=== PATIENT | male | born 1970 | race African-American/Black ===

== ENCOUNTER 2017-05-07 10:14 | Emergency (ER) | payer MEDICARE, MEDICAID ==
[~2017-05-07] VITALS: Ht 175.3 cm; Wt 62.0 kg
[2017-05-07] MEDS ORDERED: HYDROCODONE/ACETAMINOPHEN 5/325MG TABLET PO ONE (11:30)
[2017-05-07 11:50] LABS: CLARITY URINE CLOUDY (CLEAR); COLOR URINE YELLOW (YELLOW); GLUCOSE URINE NEGATIVE (NEGATIVE); KETONES URINE NEGATIVE (NEGATIVE); LEUKOCYTE ESTERASE URINE 2+ (NEGATIVE); NITRITE URINE POSITIVE (NEGATIVE); OCCULT BLOOD URINE TRACE (NEGATIVE); PROTEIN URINE 1+ (NEGATIVE); SPECIFIC GRAVITY URINE 1.016 (1.005-1.030)
[2017-05-07] MEDS ORDERED: AZITHROMYCIN 500 MG TABLET PO ONE (13:30)
[2017-05-07] MEDS ORDERED: LIDOCAINE HCL 1% 20ML VIAL (Pyxis) INJ INFIL ONE (13:30)
[2017-05-07] MEDS ORDERED: CEFTRIAXONE SODIUM 1 G/VIAL IM ONE (13:30)
[2017-05-07 13:40] VITALS: BP 135/90
== END 2017-05-07 13:51 | disposition home or self-care (01) ==
LOC: ER 10:15
DX: N45.3 Epididymo-orchitis (principal); N39.0 Urinary tract infection, site not specified; N43.3 Hydrocele, unspecified
CPT/HCPCS: 76870; 81001; 93976; 96372; 99285; J0696; J3490; 99284

== ENCOUNTER 2017-10-10 12:05 | Emergency (ER) | payer MEDICARE, MEDICAID ==
[~2017-10-10] VITALS: Ht 175.3 cm; Wt 70.0 kg
[2017-10-10] MEDS ORDERED: ONDANSETRON HCL 4MG/2ML VIAL IV STA (14:30)
[2017-10-10] MEDS ORDERED: KETOROLAC 30MG/ML VIAL IV STA (14:30)
[2017-10-10] MEDS ORDERED: FAMOTIDINE 20MG/2ML VIAL IV ONE (14:30)
[2017-10-10] MEDS ORDERED: SODIUM CHLORIDE 0.9% 1,000 ML IV ONE (14:30)
[2017-10-10 14:51] LABS: BASOPHILS % 0.4 % (0.0-2.0); HEMATOCRIT. 40.6 % (42.0-52.0); HEMOGLOBIN. 13.4 g/dL (14.0-18.0); LYMPHOCYTES % 7.1 % (20.0-50.0); MEAN CORPUSCULAR HEMOGLOBIN 29.7 pg (28.0-32.0); MEAN PLATELET VOLUME 9.4 fl (7.4-10.4); MONOCYTES % 5.7 % (2.0-8.0); NEUTROPHILS % 86.8 % (40.0-76.0); PLATELET 174 x1000/uL (130-400); RED BLOOD CELL COUNT 4.51 mill/uL (4.7-6.1)
[2017-10-10 14:59] LABS: PROTHROMBIN TIME 10.6 sec (9.4-11.6)
[2017-10-10 15:07] LABS: CARBON DIOXIDE 25 mEq/L (21-32); CHLORIDE 104 mEq/L (98-107)
[2017-10-10 15:40] LABS: CLARITY URINE CLOUDY (CLEAR); COLOR URINE YELLOW (YELLOW); GLUCOSE URINE NEGATIVE (NEGATIVE); KETONES URINE TRACE (NEGATIVE); LEUKOCYTE ESTERASE URINE 2+ (NEGATIVE); NITRITE URINE POSITIVE (NEGATIVE); OCCULT BLOOD URINE NEGATIVE (NEGATIVE); PROTEIN URINE 1+ (NEGATIVE); SPECIFIC GRAVITY URINE 1.022 (1.005-1.030)
[2017-10-10] MEDS ORDERED: IOHEXOL-300 50 ML BOTTLE IV ONE (15:57)
[2017-10-10] MEDS ORDERED: IOHEXOL-300 100 ML BOTTLE ONE (15:57)
[2017-10-10 17:32] VITALS: BP 130/75
== END 2017-10-10 17:36 | disposition home or self-care (01) ==
LOC: ER 12:05
DX: N39.0 Urinary tract infection, site not specified (principal); D72.829 Elevated white blood cell count, unspecified; Z20.6 Contact with and (suspected) exposure to human immunodeficiency virus [HIV]
CPT/HCPCS: 36415; 74177; 80053; 81001; 83690; 85025; 85610; 96361; 96374; 96375; 99285; J1885; J2405; J3490; J7030; Q9967

== ENCOUNTER 2019-02-18 09:39 | Emergency (ER) | payer MEDICARE, MEDICAID ==
[~2019-02-18] VITALS: Ht 175.3 cm; Wt 63.5 kg
[2019-02-18] MEDS ORDERED: ELVI1TAB3 PO (10:49)
[2019-02-18 11:29] LABS: CLARITY URINE CLEAR (CLEAR); COLOR URINE YELLOW (YELLOW); KETONES URINE NEGATIVE (NEGATIVE); LEUKOCYTE ESTERASE URINE 1+ (NEGATIVE); NITRITE URINE POSITIVE (NEGATIVE); OCCULT BLOOD URINE NEGATIVE (NEGATIVE); PROTEIN URINE TRACE (NEGATIVE); SPECIFIC GRAVITY URINE 1.026 (1.005-1.030); UROBILINOGEN URINE 0.2 E.U./dL (0.2-1.0)
[2019-02-18 12:16] LABS: BASOPHILS % 0.5 % (0.0-2.0); EOSINOPHILS % 0.6 % (0.0-5.0); HEMATOCRIT. 42.2 % (42.0-52.0); HEMOGLOBIN. 13.9 g/dL (14.0-18.0); LYMPHOCYTES % 16.8 % (20.0-50.0); MEAN CORPUSCULAR HEMOGLOBIN 32.1 pg (28.0-32.0); MEAN CORPUSCULAR VOLUME 97.4 fL (80.0-94.0); MEAN PLATELET VOLUME 8.4 fl (7.4-10.4); MONOCYTES % 8.1 % (2.0-8.0); PLATELET 273 x1000/uL (130-400); RED BLOOD CELL COUNT 4.33 mill/uL (4.7-6.1); RED CELL DISTRIBUTION WIDTH 15.5 % (11.6-14.6)
[2019-02-18 12:23] LABS: CHLORIDE 109 mEq/L (98-107)
[2019-02-18 12:28] VITALS: BP 125/82
== END 2019-02-18 14:04 | disposition left against medical advice (07) ==
LOC: ER 09:39
DX: N30.00 Acute cystitis without hematuria (principal); G89.29 Other chronic pain; R10.84 Generalized abdominal pain; Z90.49 Acquired absence of other specified parts of digestive tract
CPT/HCPCS: 36415; 87077; 87186; 99283

== ENCOUNTER 2019-09-23 11:16 | Emergency (ER) | payer MEDICARE, MEDICAID ==
[~2019-09-23] VITALS: Ht 175.3 cm; Wt 62.0 kg
[~2019-09-23 11:16] MED LIST: ELVI1TAB3 PO
[2019-09-23] MEDS ORDERED: KETOROLAC 30MG/ML VIAL IM ONE (12:00)
[2019-09-23 13:30] VITALS: BP 128/82
== END 2019-09-23 13:55 | disposition home or self-care (01) ==
LOC: ER 11:16
DX: S52.571A Other intraarticular fracture of lower end of right radius, initial encounter for closed fracture (principal); R05 Cough; Z90.49 Acquired absence of other specified parts of digestive tract; W10.8XXA Fall (on) (from) other stairs and steps, initial encounter; Y93.89 Activity, other specified; Y92.018 Other place in single-family (private) house as the place of occurrence of the external cause
CPT/HCPCS: 73110; 73130; 96372; 99283; J1885

== ENCOUNTER 2022-03-04 11:52 | Emergency (ER) | payer MEDICARE, MEDICAID ==
[~2022-03-04] VITALS: Ht 175.3 cm; Wt 59.0 kg
[2022-03-04] MEDS ORDERED: ACETAMINOPHEN WITH CODEINE 300/30MG TABLET PO NR (12:20)
[2022-03-04] MEDS ORDERED: T3 PO (12:32)
[2022-03-04] MEDS ORDERED: AMOX-494 PO (12:32)
[2022-03-04 13:16] VITALS: BP 124/91
== END 2022-03-04 13:16 | disposition home or self-care (01) ==
LOC: ER 12:13
DX: S02.5XXA Fracture of tooth (traumatic), initial encounter for closed fracture (principal); S00.83XA Contusion of other part of head, initial encounter; Z90.49 Acquired absence of other specified parts of digestive tract; W01.190A Fall on same level from slipping, tripping and stumbling with subsequent striking against furniture, initial encounter; Y93.89 Activity, other specified; Y92.018 Other place in single-family (private) house as the place of occurrence of the external cause
CPT/HCPCS: 99283

== ENCOUNTER 2022-07-20 12:25 | Emergency (ER) | payer MEDICARE, MEDICAID ==
[~2022-07-20] VITALS: Ht 175.3 cm; Wt 57.0 kg
[~2022-07-20 12:25] MED LIST changes: +AMOX-494 PO; +T3 PO
[2022-07-20 12:54] VITALS: BP 150/86
[2022-07-20] MEDS ORDERED: OFLO5DRO4 LEFT EAR (14:43)
== END 2022-07-20 16:20 | disposition home or self-care (01) ==
LOC: ER 12:25
DX: H60.92 Unspecified otitis externa, left ear (principal)
CPT/HCPCS: 99281; 99283

== ENCOUNTER → 2022-08-18 | Outpatient (CLI) | payer MEDICARE, MEDICAID ==
[~2022-08-18] MED LIST changes: +OFLO5DRO4 LEFT EAR
== END | disposition home or self-care (01) ==
LOC: RAD 12:12
PROVIDERS: ATTEND Pain Medicine Pain Medicine
DX: M12.561 Traumatic arthropathy, right knee (principal); M12.562 Traumatic arthropathy, left knee; M23.91 Unspecified internal derangement of right knee; M23.92 Unspecified internal derangement of left knee
CPT/HCPCS: 73565

== ENCOUNTER → 2022-08-31 | Outpatient (CLI) | payer MEDICARE, MEDICAID ==
[~2022-08-31] MED LIST changes: +MECL-159 MT
[2022-08-31 16:39] LABS: BASOPHILS % 0.3 % (0.0-2.0); EOSINOPHILS % 1.4 % (0.0-5.0); HEMATOCRIT. 38.5 % (42.0-52.0); HEMOGLOBIN. 12.7 g/dL (14.0-18.0); LYMPHOCYTES % 14.7 % (20.0-50.0); MEAN CORPUSCULAR HEMOGLOBIN 32.1 pg (28.0-32.0); MEAN CORPUSCULAR VOLUME 97.1 fL (80.0-94.0); MEAN PLATELET VOLUME 8.2 fl (7.4-10.4); MONOCYTES % 8.4 % (2.0-8.0); NEUTROPHILS % 75.2 % (40.0-76.0); PLATELET 370 x1000/uL (130-400); RED BLOOD CELL COUNT 3.97 mill/uL (4.7-6.1); RED CELL DISTRIBUTION WIDTH 16.2 % (11.6-14.6)
[2022-08-31 16:57] LABS: CHLORIDE 105 mEq/L (98-107)
[2022-08-31 17:10] LABS: GAMMA GLUTAMYL TRANSPEPTIDASE 218 IU/L (11-50); HDL CHOLESTEROL 37 mg/dL (40-59); LDL CHOLESTEROL 34 mg/dL (5-100)
[2022-09-03 13:11] LABS: VITAMIN D 1-25 DIHYDROXY 85.6 pg/mL (24.8-81.5)
== END | disposition home or self-care (01) ==
LOC: LAB 15:45
PROVIDERS: ATTEND Pain Medicine Pain Medicine
DX: E55.9 Vitamin D deficiency, unspecified (principal); K75.9 Inflammatory liver disease, unspecified; R79.9 Abnormal finding of blood chemistry, unspecified; E78.5 Hyperlipidemia, unspecified; E03.9 Hypothyroidism, unspecified; D64.9 Anemia, unspecified; M10.00 Idiopathic gout, unspecified site; R97.20 Elevated prostate specific antigen [PSA]
CPT/HCPCS: 36415; 80053; 80061; 82652; 82977; 83735; 84153; 84436; 84443; 84550; 85025; G0103

== ENCOUNTER 2022-09-22 13:01 | Emergency (ER) | payer MEDICARE, MEDICAID ==
[~2022-09-22] VITALS: Ht 182.9 cm; Wt 89.0 kg
[~2022-09-22 13:01] MED LIST changes: -MECL-159 MT
[2022-09-22 13:17] VITALS: BP 127/95
[2022-09-22] MEDS ORDERED: MECLIZINE 25MG TABLET PO ONE (15:00)
[2022-09-22 15:26] LABS: BASOPHILS % 0.4 % (0.0-2.0); EOSINOPHILS % 0.5 % (0.0-5.0); HEMATOCRIT. 38.6 % (42.0-52.0); HEMOGLOBIN. 12.7 g/dL (14.0-18.0); LYMPHOCYTES % 8.3 % (20.0-50.0); MEAN CORPUSCULAR HEMOGLOBIN 32.1 pg (28.0-32.0); MEAN CORPUSCULAR VOLUME 97.8 fL (80.0-94.0); MEAN PLATELET VOLUME 8.2 fl (7.4-10.4); NEUTROPHILS % 83.8 % (40.0-76.0); PLATELET 368 x1000/uL (130-400); RED BLOOD CELL COUNT 3.95 mill/uL (4.7-6.1); RED CELL DISTRIBUTION WIDTH 16.5 % (11.6-14.6)
[2022-09-22 15:37] LABS: CHLORIDE 108 mEq/L (98-107)
[2022-09-22] MEDS ORDERED: MECL-159 MT (16:35)
== END 2022-09-22 17:33 | disposition home or self-care (01) ==
LOC: ER 13:01
DX: R42 Dizziness and giddiness (principal); Z90.49 Acquired absence of other specified parts of digestive tract
CPT/HCPCS: 36415; 80048; 85025; 99283; J8597

== ENCOUNTER 2022-10-27 13:44 | Emergency (ER) | payer MEDICARE, MEDICAID ==
[~2022-10-27] VITALS: Ht 175.3 cm; Wt 59.0 kg
[~2022-10-27 13:44] MED LIST changes: +MECL-159 MT
[2022-10-27 13:50] VITALS: BP 127/87
== END 2022-10-27 20:22 | disposition left against medical advice (07) ==
LOC: ER 13:44
DX: Z53.21 Procedure and treatment not carried out due to patient leaving prior to being seen by health care provider (principal)

== ENCOUNTER 2022-11-12 11:36 | Emergency (ER) | payer MEDICARE, MEDICAID ==
[~2022-11-12] VITALS: Ht 175.3 cm; Wt 59.0 kg
[2022-11-12 11:45] VITALS: BP 109/59
[2022-11-12 12:58] LABS: CLARITY URINE CLEAR (CLEAR); COLOR URINE YELLOW (YELLOW); KETONES URINE TRACE (NEGATIVE); LEUKOCYTE ESTERASE URINE 1+ (NEGATIVE); NITRITE URINE POSITIVE (NEGATIVE); OCCULT BLOOD URINE TRACE (NEGATIVE); PH URINE 5.5 (4.5-8.0); PROTEIN URINE 1+ (NEGATIVE); SPECIFIC GRAVITY URINE 1.024 (1.005-1.030)
[2022-11-12] MEDS ORDERED: LIDOCAINE HCL 1% 20ML VIAL (Pyxis) INJ INFIL ONE (13:45)
[2022-11-12] MEDS ORDERED: CEFTRIAXONE SODIUM 1 G/VIAL IM ONE (13:45)
[2022-11-12] MEDS ORDERED: METR-167 PO (13:53)
[2022-11-12] MEDS ORDERED: DOXY100T28 MT (13:53)
[2022-11-12] MEDS ORDERED: LIDOCAINE HCL 1% 10 MG/ML 10ML VIAL INJ NR (14:15)
== END 2022-11-12 14:21 | disposition home or self-care (01) ==
LOC: ER 11:36
DX: N39.0 Urinary tract infection, site not specified (principal); A59.9 Trichomoniasis, unspecified; Z90.49 Acquired absence of other specified parts of digestive tract; Z88.6 Allergy status to analgesic agent
CPT/HCPCS: 81003; 87077; 87086; 87186; 96372; 99283; J0696; J3490

== ENCOUNTER 2023-02-25 12:57 | Emergency (ER) | payer MEDICARE, MEDICAID ==
[~2023-02-25] VITALS: Ht 175.3 cm; Wt 61.4 kg
[~2023-02-25 12:57] MED LIST changes: +DOXY100T28 MT; +METR-167 PO
[2023-02-25 13:09] VITALS: BP 119/82
[2023-02-25 13:39] LABS: BASOPHILS % 0.4 % (0.0-2.0); EOSINOPHILS % 0.3 % (0.0-5.0); HEMATOCRIT. 38.8 % (42.0-52.0); HEMOGLOBIN. 12.6 g/dL (14.0-18.0); LYMPHOCYTES % 14.9 % (20.0-50.0); MEAN CORPUSCULAR HEMOGLOBIN 29.3 pg (28.0-32.0); MEAN CORPUSCULAR VOLUME 90.1 fL (80.0-94.0); MEAN PLATELET VOLUME 8.6 fl (7.4-10.4); MONOCYTES % 12.3 % (2.0-8.0); NEUTROPHILS % 72.1 % (40.0-76.0); PLATELET 308 x1000/uL (130-400); RED BLOOD CELL COUNT 4.31 mill/uL (4.7-6.1); RED CELL DISTRIBUTION WIDTH 15.2 % (11.6-14.6)
[2023-02-25 13:40] LABS: CHLORIDE 107 mEq/L (98-107)
[2023-02-25 14:20] LABS: PARTIAL THROMBOPLASTIN TIME 28.8 sec (23.4-31.0); PROTHROMBIN TIME 11.2 sec (9.6-11.0)
[2023-02-25 15:34] LABS: CLARITY URINE CLOUDY (CLEAR); COLOR URINE DARK YELLOW (YELLOW); KETONES URINE TRACE (NEGATIVE); LEUKOCYTE ESTERASE URINE 2+ (NEGATIVE); NITRITE URINE POSITIVE (NEGATIVE); OCCULT BLOOD URINE TRACE (NEGATIVE); PH URINE 5.5 (4.5-8.0); PROTEIN URINE 2+ (NEGATIVE); SPECIFIC GRAVITY URINE 1.025 (1.005-1.030)
[2023-02-25] MEDS ORDERED: TOPUD MT (15:44)
[2023-02-25] MEDS ORDERED: CEPH500C2 MT (16:26)
== END 2023-02-25 16:35 | disposition home or self-care (01) ==
LOC: ER 12:57
DX: R07.89 Other chest pain (principal); Z88.6 Allergy status to analgesic agent; Z79.899 Other long term (current) drug therapy
CPT/HCPCS: 36415; 71045; 80053; 81003; 84484; 85025; 93005; 99285

== ENCOUNTER 2023-04-02 06:32 | Emergency (ER) | payer MEDICARE, MEDICAID ==
[~2023-04-02] VITALS: Ht 175.3 cm; Wt 59.0 kg
[~2023-04-02 06:32] MED LIST changes: +CEPH500C2 MT; +TOPUD MT
[2023-04-02] MEDS ORDERED: IBUPROFEN 600MG TABLET PO ONE (08:30)
[2023-04-02] MEDS ORDERED: IBUP-2028 MT (08:35)
[2023-04-02] MEDS ORDERED: AMOX1TAB16 MT (08:35)
[2023-04-02 08:42] VITALS: BP 159/94
== END 2023-04-02 08:59 | disposition home or self-care (01) ==
LOC: ER 06:32
DX: H92.01 Otalgia, right ear (principal); Z90.49 Acquired absence of other specified parts of digestive tract; Z79.899 Other long term (current) drug therapy
CPT/HCPCS: 99282; 99283

== ENCOUNTER 2023-05-31 11:17 | Emergency (ER) | payer MEDICARE, MEDICAID ==
[~2023-05-31] VITALS: Ht 175.3 cm; Wt 54.8 kg
[~2023-05-31 11:17] MED LIST changes: +AMOX1TAB16 MT; +IBUP-2028 MT
[2023-05-31 11:26] VITALS: O2SAT 100
[2023-05-31 12:26] LABS: BASOPHILS % 0.3 % (0.0-2.0); HEMATOCRIT. 41.3 % (42.0-52.0); HEMOGLOBIN. 13.9 g/dL (14.0-18.0); LYMPHOCYTES % 11.4 % (20.0-50.0); MEAN CORPUSCULAR HEMOGLOBIN 30.4 pg (28.0-32.0); MEAN CORPUSCULAR VOLUME 90.7 fL (80.0-94.0); MEAN PLATELET VOLUME 8.6 fl (7.4-10.4); MONOCYTES % 6.3 % (2.0-8.0); PLATELET 329 x1000/uL (130-400); RED BLOOD CELL COUNT 4.55 mill/uL (4.7-6.1); RED CELL DISTRIBUTION WIDTH 16.8 % (11.6-14.6)
[2023-05-31 12:33] LABS: CHLORIDE 108 mEq/L (98-107)
[2023-05-31 14:12] LABS: CLARITY URINE TURBID (CLEAR); COLOR URINE YELLOW (YELLOW); KETONES URINE NEGATIVE (NEGATIVE); LEUKOCYTE ESTERASE URINE 1+ (NEGATIVE); NITRITE URINE POSITIVE (NEGATIVE); OCCULT BLOOD URINE NEGATIVE (NEGATIVE); PH URINE 5.5 (4.5-8.0); PROTEIN URINE TRACE (NEGATIVE); SPECIFIC GRAVITY URINE 1.019 (1.005-1.030); UROBILINOGEN URINE 0.2 E.U./dL (0.2-1.0)
[2023-05-31] MEDS ORDERED: DOXY100T2 MT (15:57)
[2023-05-31] MEDS ORDERED: LACT1CAP78 MT (15:57)
[2023-05-31] MEDS ORDERED: CEFP200T13 MT (15:57)
[2023-05-31] MEDS ORDERED: LIDOCAINE HCL 1% 20ML VIAL (Pyxis) INJ INFIL ONE (16:00)
[2023-05-31] MEDS ORDERED: CEFTRIAXONE SODIUM 1 G/VIAL IM ONE (16:00)
[2023-05-31 16:29] VITALS: BP 126/73; PULSE 80; RESP 20; TEMP 98
== END 2023-05-31 16:31 | disposition home or self-care (01) ==
LOC: ER 11:17
DX: N39.0 Urinary tract infection, site not specified (principal); R19.7 Diarrhea, unspecified; Z87.891 Personal history of nicotine dependence; Z90.49 Acquired absence of other specified parts of digestive tract
CPT/HCPCS: 99285; 74176; 82270; 80053; 81003; 83690; 85025; 89055; 87045; 87427 ×2; 87015; 87493; 36415; 87449; 96372; J0696; J3490

== ENCOUNTER → 2023-09-03 | Outpatient (CLI) | payer MEDICARE, MEDICAID ==
[~2023-09-03] MED LIST changes: +CEFP200T13 MT; +DOXY100T2 MT; +LACT1CAP78 MT; -MECL-159 MT; +MECL-299 MT
== END | disposition home or self-care (01) ==
LOC: MRI 08:08
DX: T14.8XXA Other injury of unspecified body region, initial encounter (principal); M54.51 Vertebrogenic low back pain; G62.9 Polyneuropathy, unspecified; X58.XXXA Exposure to other specified factors, initial encounter; Y93.89 Activity, other specified; Y92.89 Other specified places as the place of occurrence of the external cause; Y99.8 Other external cause status
CPT/HCPCS: 72148

== ENCOUNTER 2023-12-12 10:32 | Emergency (ER) | payer MEDICARE, MEDICAID ==
[~2023-12-12] VITALS: Ht 180.3 cm; Wt 65.0 kg
[2023-12-12 10:36] VITALS: O2SAT 98
[2023-12-12 10:50] LABS: BASOPHILS % 0.3 % (0.0-2.0); EOSINOPHILS % 2.4 % (0.0-5.0); HEMATOCRIT. 37.9 % (42.0-52.0); HEMOGLOBIN. 12.1 g/dL (14.0-18.0); LYMPHOCYTES % 14.2 % (20.0-50.0); MEAN CORPUSCULAR HEMOGLOBIN 29.8 pg (28.0-32.0); MEAN PLATELET VOLUME 8.4 fl (7.4-10.4); MONOCYTES % 13.4 % (2.0-8.0); NEUTROPHILS % 69.7 % (40.0-76.0); PLATELET 295 x1000/uL (130-400); RED BLOOD CELL COUNT 4.07 mill/uL (4.7-6.1)
[2023-12-12 11:29] LABS: ALANINE AMINOTRANSFERASE 26 IU/L (10-49); ALBUMIN 3.9 g/dL (3.2-4.8); ASPARTATE AMINOTRANSFERASE 40 IU/L (<34); BILIRUBIN TOTAL 0.3 mg/dL (0.1-1.0); CALCIUM 8.8 mg/dL (8.7-10.4); CARBON DIOXIDE 27 mEq/L (21-32); CHLORIDE 107 mEq/L (98-107); CREATININE 0.7 mg/dL (0.6-1.3); GLUCOSE 83 mg/dL (70-105); POTASSIUM 4.7 mEq/L (3.5-5.1); PROTEIN TOTAL 8.1 g/dL (6.0-8.3); SODIUM 136 mEq/L (136-145); UREA NITROGEN BLOOD 11 mg/dL (9-23)
[2023-12-12 11:31] LABS: TROPONIN I HIGH SENSITIVITY < 4 ng/L (3.0-53)
[2023-12-12 12:09] LABS: CLARITY URINE CLOUDY (CLEAR); COLOR URINE YELLOW (YELLOW); GLUCOSE URINE NEGATIVE (NEGATIVE); KETONES URINE NEGATIVE (NEGATIVE); LEUKOCYTE ESTERASE URINE 2+ (NEGATIVE); NITRITE URINE POSITIVE (NEGATIVE); OCCULT BLOOD URINE NEGATIVE (NEGATIVE); PH URINE 6.5 (4.5-8.0); PROTEIN URINE TRACE (NEGATIVE); SPECIFIC GRAVITY URINE 1.019 (1.005-1.030)
[2023-12-12] MEDS ORDERED: ACET-2708 MT (12:17)
[2023-12-12] MEDS ORDERED: SULF1TAB48 MT (12:17)
[2023-12-12] MEDS: ACETAMINOPHEN 500MG TABLET PO ONE (12:35)
[2023-12-12] MEDS: SULFAMETHOXAZOLE/TRIMETHOPRIM 800/160MG TABLET PO ONE (12:36)
[2023-12-12 12:47] VITALS: BP 127/86; PULSE 94; RESP 20; TEMP 98.1
[2023-12-12 12:56] LABS: SQUAMOUS EPITHELIAL CELL URINE NONE SEEN /lpf (RARE/1+)
[2023-12-12 12:57] LABS: BACTERIA URINE 4+; WBC URINE 50-100 /hpf (0-2)
[2023-12-12 12:58] LABS: RBC URINE 0-2 /hpf (0-2)
== END 2023-12-12 12:48 | disposition home or self-care (01) ==
LOC: ER 10:32
DX: R05.3 Chronic cough (principal); N39.0 Urinary tract infection, site not specified; Z20.822 Contact with and (suspected) exposure to COVID-19; Z98.890 Other specified postprocedural states; Z79.899 Other long term (current) drug therapy
CPT/HCPCS: 36415; 71045; 80053; 81003; 84484; 85025; 87077; 87186; 87420; 87426; 87804; 93005; 99285

== ENCOUNTER 2024-04-13 20:36 | Emergency (ER) | payer MEDICARE, MEDICAID ==
[~2024-04-13] VITALS: Ht 175.3 cm; Wt 59.0 kg
[~2024-04-13 20:36] MED LIST changes: +ACET-2708 MT; +AZIT250T12 MT; +SULF1TAB48 MT
[2024-04-13 21:10] VITALS: BP 115/83; PULSE 102; RESP 18; TEMP 98.9; O2SAT 100
== END 2024-04-14 00:58 | disposition home or self-care (01) ==
LOC: ER 20:36
DX: M79.89 Other specified soft tissue disorders (principal); Z90.49 Acquired absence of other specified parts of digestive tract; Z79.899 Other long term (current) drug therapy
CPT/HCPCS: 71046; 93970; 99284